=== PATIENT | female | born 1945 | race Caucasian/White ===

== ENCOUNTER 2019-05-04 08:55 | Observation (INO) | payer OTHER ==
[~2019-05-04] VITALS: Ht 160 cm; Wt 101.1 kg
--- NOTE | 2019-05-04 09:50 | EKG ---
[facility] [address] [place] [address] Test Date: 2019-05-04 Test Time: 09:49:33 Pat Name: CARLOZ DODSON Department: Room: Gender: F Manager Revenue: MARTIN : 1945 Requested By: MARLO CROTEZ Order Number: [id number] Reading MD: Measurements Intervals Rush Rate: 67 P: 18 NV: 122 QRS: -9 QRSD: 84 T: 4 QT: 380 QTc: 404 Interpretive Statements SINUS RHYTHM LEFTWARD AXIS OTHERWISE NORMAL ECG RI6.01 No previous ECG available for comparison
--- NOTE | 2019-05-04 09:52 | PHYS DOC ---
Past Medical History Past Medical History: Arthritis, Diabetes-Type II, Hypertension, Other Additional Past Medical Histor: TBI; gout Past Surgical History: Other Additional Past Surgical Histo: skull Smoking Status: Never Smoker Alcohol Use: None Adult General Chief Complaint Chief Complaint: MECHANICAL FALL HPI HPI 74-year-old female presenting the emergency department today after a fall while she was at home. She lives in assisted living facility and was walking without her walker when she reports falling. She has a history of a traumatic brain injury and has very little sensation in her left side of her body including left upper and left lower extremities. Her daughter is here with her. She denies hitting her head or losing consciousness. She didn't pass out she reports a mechanical fall. Since the fall she was having a hard time walking and complains primarily of the left knee and hip having some pain. She denies neck pain or back pain. She denies abdominal pain or chest pain. The pain in her knee and hip is sharp mild pain that is nonradiating without a leading factors. She denies any injury to her ankle. Review of systems is negative for chest pain abdominal pain back pain and neck pain or any changes in her neurologic condition. She is a baseline neuro status. All other review of systems negative. ED course: 74-year-old female presenting the emergency department today after a fall at home. X-rays of the left hip and knee obtained along with a head CT and some basic blood work with an EKG. EKG obtained and reviewed by myself shows sinus rhythm with a regular rate. ST segments congruent. Not suggestive of ACS. Otherwise her no other signs of trauma on physical examination. X-rays of the hip and knee are unremarkable. Patient is able to ambulate at baseline in the emergency department without any difficulty. Unfortunately the patient's glucose is significantly elevated at 528. We'll give the patient some IV fluids and admit the patient for treatment of her hyperglycemia. Allergies Allergies Allergies Coded Allergies Type Severity Reaction Last Updated Verified codeine Allergy Intermediate 05/04/19 Yes Physical Exam Physical Exam Constitutional: Well developed, well nourished, no acute distress, non-toxic appearance. [] HENT: Normocephalic, atraumatic, bilateral external ears normal, oropharynx moist, no oral exudates, nose normal. [] Eyes: PERRLA, EOMI, conjunctiva normal, no discharge. [] Neck: Normal range of motion, no tenderness, supple, no stridor. [] Cardiovascular:Heart rate regular rhythm, no murmur [] Lungs & Thorax: Bilateral breath sounds clear to auscultation [] Abdomen: Bowel sounds normal, soft, no tenderness, no masses, no pulsatile masses. [] Skin: Warm, dry, no erythema, no rash. [] Back: No tenderness, no CVA tenderness. [] Extremities: No tenderness, no cyanosis, no clubbing, ROM intact, no edema. [] Neurologic: Alert and oriented X 3, normal motor function, normal sensory function, no focal deficits noted. [] Psychologic: Affect normal, judgement normal, mood normal. [] Current Patient Data Vital Signs Vital Signs Date Time Temp Pulse Resp B/P (MAP) Pulse Ox O2 Delivery O2 Flow Rate FiO2 05/04/19 11:23 92 20 97 05/04/19 09:00 97.3 134/62 (86) Room Air 97.3 Lab Values Laboratory Tests Test 05/04/19 09:58 White Blood Count 6.1 x10^3/uL (4.0-11.0) Red Blood Count 4.55 x10^6/uL (3.50-5.40) Hemoglobin 13.4 g/dL (12.0-15.5) Hematocrit 39.6 % (36.0-47.0) Mean Corpuscular Volume 87 fL (79-100) Mean Corpuscular Hemoglobin 30 pg (25-35) Mean Corpuscular Hemoglobin Concent 34 g/dL (31-37) Red Cell Distribution Width 14.0 % (11.5-14.5) Platelet Count 133 x10^3/uL (140-400) L Neutrophils (%) (Auto) 64 % (31-73) Lymphocytes (%) (Auto) 25 % (24-48) Monocytes (%) (Auto) 7 % (0-9) Eosinophils (%) (Auto) 3 % (0-3) Basophils (%) (Auto) 1 % (0-3) Neutrophils # (Auto) 3.9 x10^3/uL (1.8-7.7) Lymphocytes # (Auto) 1.5 x10^3/uL (1.0-4.8) Monocytes # (Auto) 0.4 x10^3/uL (0.0-1.1) Eosinophils # (Auto) 0.2 x10^3/uL (0.0-0.7) Basophils # (Auto) 0.1 x10^3/uL (0.0-0.2) Sodium Level 136 mmol/L (136-145) Potassium Level 4.3 mmol/L (3.5-5.1) Chloride Level 98 mmol/L (98-107) Carbon Dioxide Level 28 mmol/L (21-32) Anion Gap 10 (6-14) Blood Urea Nitrogen 34 mg/dL (7-20) H Creatinine 2.0 mg/dL (0.6-1.0) H Estimated GFR (Cockcroft-Gault) 24.4 BUN/Creatinine Ratio 17 (6-20) Glucose Level 528 mg/dL (70-99) *H Calcium Level 9.8 mg/dL (8.5-10.1) Total Bilirubin 0.5 mg/dL (0.2-1.0) Aspartate Amino Transferase (AST) 12 U/L (15-37) L Alanine Aminotransferase (ALT) 20 U/L (14-59) Alkaline Phosphatase 129 U/L (46-116) H Total Protein 7.0 g/dL (6.4-8.2) Albumin 3.4 g/dL (3.4-5.0) Albumin/Globulin Ratio 0.9 (1.0-1.7) L Laboratory Tests 05/04/19 09:58 Laboratory Tests 05/04/19 09:58 EKG EKG [] Radiology/Procedures Radiology/Procedures [] Course & Med Decision Making Course & Med Decision Making Pertinent Labs and Imaging studies reviewed. (See chart for details) [] Dragon Disclaimer Dragon Disclaimer This electronic medical record was generated, in whole or in part, using a voice recognition dictation system. Departure Departure Impression: Primary Impression: Hyperglycemia Additional Impressions: Hip pain, left Fall Disposition: ADMITTED INPATIENT Condition: STABLE Referrals: MICAH COWAN DO (PCP) Problem Qualifiers MARLO CORTEZ MD May 04, 2019 09:52
[2019-05-04 10:02] LABS: BASO # 0.1 x10^3/uL (0.0-0.2); BASO % 1 % (0-3); EOS # 0.2 x10^3/uL (0.0-0.7); EOS % 3 % (0-3); HEMATOCRIT 39.6 % (36.0-47.0); HEMOGLOBIN 13.4 g/dL (12.0-15.5); LYMPH # 1.5 x10^3/uL (1.0-4.8); LYMPH % 25 % (24-48); MEAN CORPUSCULAR HEMOGLOBIN 30 pg (25-35); MEAN CORPUSCULAR HGB CONC 34 g/dL (31-37); MEAN CORPUSCULAR VOLUME 87 fL (79-100); MONO # 0.4 x10^3/uL (0.0-1.1); MONO % 7 % (0-9); NEUT # 3.9 x10^3/uL (1.8-7.7); NEUT % 64 % (31-73); PLATELET COUNT 133 x10^3/uL (140-400); RED BLOOD COUNT 4.55 x10^6/uL (3.50-5.40); WHITE BLOOD COUNT 6.1 x10^3/uL (4.0-11.0)
[2019-05-04 10:20] LABS: ALBUMIN 3.4 g/dL (3.4-5.0); ALBUMIN/GLOBULIN RATIO 0.9 (1.0-1.7); CALCIUM 9.8 mg/dL (8.5-10.1); GFR 24.4; POTASSIUM 4.3 mmol/L (3.5-5.1); TOTAL BILIRUBIN 0.5 mg/dL (0.2-1.0)
--- NOTE | 2019-05-04 10:29 | RAD ---
EXAM: Head CT without contrast. HISTORY: Fall. TECHNIQUE: Computed tomographic images of the head were obtained without contrast. *One or more of the following individualized dose reduction techniques were utilized for this examination: 1. Automated exposure control. 2. Adjustment of the mA and/or kV according to patient size. 3. Use of iterative reconstruction technique. COMPARISON: None. FINDINGS: There is no acute or subacute intracranial hemorrhage. There is a large region of cystic encephalomalacia possibly superimposed on a resection cavity involving the right middle cerebral artery distribution and middle cranial fossa. There are overlying craniotomy changes. There are suspected calcifications within the region of encephalomalacia. There are subtle areas of hypodensity within the cerebral white matter, likely due to chronic small vessel disease. There is mild age-appropriate cerebral volume loss. The orbits and paranasal sinuses are unremarkable. There is a small amount of fluid within the inferior left mastoid air cells. There is near complete opacification of the right mastoid air cells and there are right mastoidectomy changes. IMPRESSION: 1. No convincing acute intracranial finding. 2. Large region of encephalomalacia likely superimposed on a resection cavity involving the right middle cerebral artery distribution. There are overlying craniotomy changes. 3. Bilateral cerebral white matter changes, likely due to chronic small vessel disease. 4. Right mastoid air cell opacification and evidence of prior partial mastoid resection. Electronically signed by: Skylar Loya MD (05/04/2019 10:27 AM) [facility] [place]
--- NOTE | 2019-05-04 10:33 | RAD ---
Examination: HIP LEFT 2V WITH PELVIS History: Pain after fall injury Comparison/Correlation: None Findings: Frontal views of the pelvis were obtained. Frog-leg lateral view of the left hip and frontal view of the left hip were provided. Hip joint spaces are normal. No fracture or bone destruction. Soft tissues are unremarkable. Small sclerotic lesion involving the left greater trochanter is present with no suspicious features. Lower lumbar spine degenerative changes are present. Impression: No acute fracture or bone destruction. Consider further imaging if occult process is a persistent concern. Electronically signed by: Deepak Schaefer MD (05/04/2019 10:30 AM) [facility]
--- NOTE | 2019-05-04 10:35 | RAD ---
Examination: KNEE LEFT 3V History: Pain after fall injury Comparison/Correlation: None Findings: A total of 4 images were acquired. Frontal and lateral views of the left knee were obtained. Severe medial compartment narrowing is present. Spurring about the lateral and medial compartments is evident. No displaced fracture or bone destruction. No definite knee joint effusion although evaluation is limited on the lateral view provided due to artifact. Vascular calcification noted. Impression: Advanced degenerative changes. No acute process. Electronically signed by: Deepak Schaefer MD (05/04/2019 10:32 AM) [facility]
[2019-05-04] MEDS ORDERED: IV NORMAL SALINE 1000ML BAG 1,000 ML IV SCH (13:59)
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
[2019-05-04] MEDS ORDERED: ALBUTEROL SULFATE 2.5 MG/3 ML NEBU. NEB PRN (14:00)
[2019-05-04] MEDS ORDERED: guaiFENesin ORAL 200 MG/10 ML LIQUID. PO PRN (14:00)
[2019-05-04] MEDS ORDERED: ZOLPIDEM 5 MG TABLET. PO PRN (14:00)
[2019-05-04] MEDS ORDERED: DOCUSATE SODIUM 100 MG CAPSULE. PO PRN (14:00)
[2019-05-04] MEDS ORDERED: ACETAMINOPHEN 325 MG TABLET. PO PRN (14:00)
[2019-05-04] MEDS ORDERED: ONDANSETRON PF 4 MG/2 ML VIAL. IV PRN (14:00)
[2019-05-04] MEDS ORDERED: LORazepam 0.5 MG TABLET PO PRN (14:00)
[2019-05-04] MEDS ORDERED: DEXTROSE 50% 25 GM / 50ML DISP.SYRIN. IV PRN (15:45)
[2019-05-04] MEDS ORDERED: INSULIN LISPRO 300 UNITS/3 ML VIAL. SQ ONE ×2 (17:30→21:15)
[2019-05-04] MEDS: INSULIN LISPRO 300 UNITS/3 ML VIAL. SQ SCH (17:59)
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
[2019-05-04 19:00] VITALS: BP 158/77
[2019-05-04] MEDS: HEPARIN for SUB-Q USE 5,000 UNIT/ML VIAL. SQ SCH (20:28)
[2019-05-04] MEDS ORDERED: CINN500C2 PO (22:50)
[2019-05-04] MEDS ORDERED: SENN-82 PO (22:50)
[2019-05-04] MEDS ORDERED: LINA5TAB PO (22:50)
[2019-05-04] MEDS ORDERED: ASPI-630 PO (22:50)
[2019-05-04] MEDS ORDERED: DOCU-109 PO (22:50)
[2019-05-04] MEDS ORDERED: CALC-496 PO (22:50)
[2019-05-04] MEDS ORDERED: FERR325T14 PO (22:50)
[2019-05-04] MEDS ORDERED: FEBU80TA2 PO (22:50)
[2019-05-04] MEDS ORDERED: OMEP20CA16 PO (22:50)
[2019-05-04] MEDS ORDERED: DULO30CA2 PO (22:50)
[2019-05-04] MEDS ORDERED: GABA300C18 PO (22:50)
[2019-05-04] MEDS ORDERED: FURO40TA4 PO (22:50)
[2019-05-04] MEDS ORDERED: GLIM4TAB8 PO (22:50)
[2019-05-04] MEDS ORDERED: POTA20TA40 PO (22:53)
[2019-05-04 23:00] VITALS: BP 122/71
[2019-05-05 03:41] VITALS: BP 118/68
[2019-05-05 07:00] VITALS: BP 133/59
[2019-05-05] MEDS ORDERED: PANTOPRAZOLE 40 MG TABLET.DR. PO SCH (07:30)
[2019-05-05] MEDS ORDERED: CALCIUM CARB/VIT D3 500/200 TABLET. PO SCH (08:00)
[2019-05-05] MEDS ORDERED: FERROUS SULFATE 325 MG TABLET. PO SCH (08:00)
[2019-05-05] MEDS ORDERED: ASPIRIN CHEWABLE 81 MG TABLET. PO SCH (08:00)
[2019-05-05] MEDS ORDERED: FEBUXOSTAT 40 MG TABLET PO SCH (09:00)
[2019-05-05] MEDS ORDERED: POTASSIUM BICARB 20 MEQ EFFERVESCENT TABLET. PO SCH (09:00)
[2019-05-05] MEDS ORDERED: NON FORMULARY ITEM (Cinnamon Bark (Cinnamon) 1,000 MG) PO SCH (09:00)
[2019-05-05] MEDS ORDERED: DOCUSATE SODIUM 100 MG CAPSULE. PO SCH (09:00)
[2019-05-05] MEDS ORDERED: LINAGLIPTIN 5 MG TABLET PO SCH (09:00)
[2019-05-05] MEDS: GLIMEPIRIDE 2 MG TABLET. PO SCH ×2 (09:27→15:50)
[2019-05-05] MEDS: FUROSEMIDE 40 MG TABLET. PO SCH ×2 (09:27→15:50)
[2019-05-05] MEDS: GABAPENTIN 300 MG CAPSULE. PO SCH ×2 (09:28→15:50)
[2019-05-05] MEDS: HEPARIN for SUB-Q USE 5,000 UNIT/ML VIAL. SQ SCH (09:39)
[2019-05-05] MEDS: INSULIN LISPRO 300 UNITS/3 ML VIAL. SQ SCH ×2 (10:00→11:39)
[2019-05-05 11:00] VITALS: BP 139/73
[2019-05-05] MEDS ORDERED: INSULIN LISPRO 300 UNITS/3 ML VIAL. SQ ONE (11:30)
[2019-05-05] MEDS ORDERED: INSULIN LISPRO 300 UNITS/3 ML VIAL. SQ SCH (11:30)
--- NOTE | 2019-05-05 13:38 | PDOC ---
PROGRESS NOTES Chief Complaint Chief Complaint Mechanical fall Essential hypertension Hyperglycemia Diabetes mellitus type 2 insulin requiring Obesity with a BMI of 39 History of traumatic brain injury Plan increase insulin dosage for better glycemia control continue home meds Further recommendations based on the clinical course DVT prophylaxis with Lovenox History of Present Illness History of Present Illness Patient having a bowel movement at the time of my visit, no new complaitns voiced by the patient. she did not have acute events reported overnight, we need to increase her insulin for better control Vitals Vitals Vital Signs Date Time Temp Pulse Resp B/P (MAP) Pulse Ox O2 Delivery O2 Flow Rate FiO2 05/05/19 11:00 97.9 88 20 139/73 (95) 99 Room Air 97.9 Physical Exam Physical Exam Gen.: well-developed well-nourished in no apparent distress Head: Normal shape atraumatic Eyes: Pupils equal reactive to light and accommodation, normal conjunctivae and lids Ears: Normal shape Nose: Normal shape no trauma Mouth: No exudates of the back of throat no thrush no lesions Neck: Supple no JVD no carotid bruit or lymphadenopathy no thyromegaly Chest: Lungs clear to auscultation with good inspiratory effort no crackles rales or rhonchi Cardiovascular: S1-S2 regular rhythm no murmurs gallops or rubs Abdomen: Bowel sounds present soft nontender no hepatosplenomegaly appreciated sign Extremities: No clubbing no cyanosis no edema peripheral pulses palpated bilaterally Neurological: Alert awake oriented in person time place and situation, cranial nerves II through XII intact, no motor or sensory deficits appreciated Psych: Appropriate mood, cooperative Labs LABS Laboratory Tests Test 05/04/19 17:06 05/04/19 19:59 05/05/19 02:05 05/05/19 03:50 Glucose (Fingerstick) 469 mg/dL (70-99) 285 mg/dL (70-99) 70 mg/dL (70-99) 133 mg/dL (70-99) Test 05/05/19 07:08 05/05/19 10:27 Glucose (Fingerstick) 255 mg/dL (70-99) 417 mg/dL (70-99) Assessment and Plan Assessmemt and Plan Problems Medical Problems: (1) Fall Status: Acute (2) Hip pain, left Status: Acute (3) Hyperglycemia Status: Acute Comment Review of Relevant I have reviewed the following items rigoberto (where applicable) has been applied. Labs Laboratory Tests Test 05/04/19 09:58 05/04/19 13:13 05/04/19 17:06 05/04/19 19:59 White Blood Count 6.1 x10^3/uL (4.0-11.0) Red Blood Count 4.55 x10^6/uL (3.50-5.40) Hemoglobin 13.4 g/dL (12.0-15.5) Hematocrit 39.6 % (36.0-47.0) Mean Corpuscular Volume 87 fL (79-100) Mean Corpuscular Hemoglobin 30 pg (25-35) Mean Corpuscular Hemoglobin Concent 34 g/dL (31-37) Red Cell Distribution Width 14.0 % (11.5-14.5) Platelet Count 133 x10^3/uL (140-400) Neutrophils (%) (Auto) 64 % (31-73) Lymphocytes (%) (Auto) 25 % (24-48) Monocytes (%) (Auto) 7 % (0-9) Eosinophils (%) (Auto) 3 % (0-3) Basophils (%) (Auto) 1 % (0-3) Neutrophils # (Auto) 3.9 x10^3/uL (1.8-7.7) Lymphocytes # (Auto) 1.5 x10^3/uL (1.0-4.8) Monocytes # (Auto) 0.4 x10^3/uL (0.0-1.1) Eosinophils # (Auto) 0.2 x10^3/uL (0.0-0.7) Basophils # (Auto) 0.1 x10^3/uL (0.0-0.2) Sodium Level 136 mmol/L (136-145) Potassium Level 4.3 mmol/L (3.5-5.1) Chloride Level 98 mmol/L (98-107) Carbon Dioxide Level 28 mmol/L (21-32) Anion Gap 10 (6-14) Blood Urea Nitrogen 34 mg/dL (7-20) Creatinine 2.0 mg/dL (0.6-1.0) Estimated GFR (Cockcroft-Gault) 24.4 BUN/Creatinine Ratio 17 (6-20) Glucose Level 528 mg/dL (70-99) Calcium Level 9.8 mg/dL (8.5-10.1) Total Bilirubin 0.5 mg/dL (0.2-1.0) Aspartate Amino Transf (AST/SGOT) 12 U/L (15-37) Alanine Aminotransferase (ALT/SGPT) 20 U/L (14-59) Alkaline Phosphatase 129 U/L (46-116) Total Protein 7.0 g/dL (6.4-8.2) Albumin 3.4 g/dL (3.4-5.0) Albumin/Globulin Ratio 0.9 (1.0-1.7) Glucose (Fingerstick) 469 mg/dL (70-99) 469 mg/dL (70-99) 285 mg/dL (70-99) Test 05/05/19 02:05 05/05/19 03:50 05/05/19 07:08 05/05/19 10:27 Glucose (Fingerstick) 70 mg/dL (70-99) 133 mg/dL (70-99) 255 mg/dL (70-99) 417 mg/dL (70-99) Laboratory Tests Test 05/04/19 17:06 05/04/19 19:59 05/05/19 02:05 05/05/19 03:50 Glucose (Fingerstick) 469 mg/dL (70-99) 285 mg/dL (70-99) 70 mg/dL (70-99) 133 mg/dL (70-99) Test 05/05/19 07:08 05/05/19 10:27 Glucose (Fingerstick) 255 mg/dL (70-99) 417 mg/dL (70-99) Medications Current Medications Sodium Chloride 1,000 ml @ 100 mls/hr Q10H IV Last administered on 05/04/19at 17:56; Start 05/04/19 at 13:59 Ondansetron HCl (Zofran) 4 mg PRN Q4HRS PRN IV NAUSEA/VOMITING; Start 05/04/19 at 14:00 Zolpidem Tartrate (Ambien) 5 mg PRN QHS PRN PO INSOMNIA; Start 05/04/19 at 14:00 Acetaminophen (Tylenol) 650 mg PRN Q4HRS PRN PO TEMP OVER 100.4F OR MILD PAIN Last administered on 05/04/19at 20:20; Start 05/04/19 at 14:00 Docusate Sodium (Colace) 100 mg PRN BID PRN PO CONSTIPATION; Start 05/04/19 at 14:00 Albuterol Sulfate (Ventolin Neb Soln) 2.5 mg PRN Q4HRS PRN NEB SHORTNESS OF BREATH; Start 05/04/19 at 14:00 Guaifenesin (Robitussin) 200 mg PRN Q4HRS PRN PO COUGH; Start 05/04/19 at 14:00 Lorazepam (Ativan) 0.5 mg PRN Q4HRS PRN PO ANXIETY / AGITATION Last administered on 05/04/19at 20:20; Start 05/04/19 at 14:00 Heparin Sodium (Porcine) (Heparin Sodium) 5,000 unit Q12H SQ Last administered on 05/05/19at 09:39; Start 05/04/19 at 21:00 Insulin Human Lispro (HumaLOG) 0-7 UNITS TIDWMEALS SQ Last administered on 05/05/19at 10:00; Start 05/04/19 at 17:00 Dextrose (Dextrose 50%-Water Syringe) 12.5 gm PRN Q15MIN PRN IV SEE COMMENTS; Start 05/04/19 at 15:45 Insulin Human Lispro (HumaLOG) 10 units 1X ONCE SQ Last administered on 05/04/19at 18:00; Start 05/04/19 at 17:30; Stop 05/04/19 at 17:31; Status DC Insulin Human Lispro (HumaLOG) 4 units 1X ONCE SQ Last administered on 05/04/19at 23:00; Start 05/04/19 at 21:15; Stop 05/04/19 at 21:16; Status DC Aspirin (Children'S Aspirin) 81 mg DAILYWBKFT PO Last administered on 05/05/19at 09:27; Start 05/05/19 at 08:00 Docusate Sodium (Colace) 200 mg DAILY PO Last administered on 05/05/19at 09:26; Start 05/05/19 at 09:00 Duloxetine HCl (Cymbalta) 30 mg HS PO ; Start 05/05/19 at 21:00 Ferrous Sulfate (Feosol) 325 mg BIDWMEALS PO Last administered on 05/05/19at 09:27; Start 05/05/19 at 08:00 Furosemide (Lasix) 40 mg BID92 PO Last administered on 05/05/19 09:27; Start 05/05/19 at 09:00 Gabapentin (Neurontin) 300 mg TID PO Last administered on 05/05/19 09:28; Start 05/05/19 at 09:00 Linagliptin (Tradjenta) 5 mg DAILY PO Last administered on 05/05/19 09:27; Start 05/05/19 at 09:00 Potassium Bicarbonate (Potassium Effervescent Tablet) 20 meq DAILY PO Last administered on 05/05/19 09:26; Start 05/05/19 at 09:00 Senna/Docusate Sodium (Senna Plus) 2 tab HS PO ; Start 05/05/19 at 21:00 Calcium/Vitamin D (Oscal D 500mg/ 200uts) 1 tab DAILYWBKFT PO Last administered on 05/05/19 09:27; Start 05/05/19 at 08:00 Non-Formulary Medication (Cinnamon Bark (Cinnamon)) 1,000 mg DAILY PO ; Start 05/05/19 at 09:00; Status UNV Febuxostat (Uloric) 80 mg DAILY PO Last administered on 05/05/19 09:46; Start 05/05/19 at 09:00 Glimepiride (Amaryl) 4 mg BIDAC PO Last administered on 05/05/19 09:27; Start 05/05/19 at 07:30 Pantoprazole Sodium (Protonix) 40 mg DAILYAC PO Last administered on 05/05/19 09:27; Start 05/05/19 at 07:30 Insulin Human Lispro (HumaLOG) 12 units 1X SQ ; Start 05/05/19 at 11:30; Stop 05/05/19 at 11:26; Status DC Insulin Human Lispro (HumaLOG) 12 units ONCE ONCE SQ Last administered on 05/05/19 11:39; Start 05/05/19 at 11:30; Stop 05/05/19 at 11:31; Status DC Active Scripts Active Reported Effer-K 20 Meq Tablet Eff (Potassium Bicarbonate/Cit Ac) 20 Meq Tablet.eff 1 Tab PO DAILY 30 Days Uloric (Febuxostat) 80 Mg Tablet 1 Tab PO DAILY 30 Days Tradjenta (Linagliptin) 5 Mg Tablet 5 Mg PO DAILY Senna S Tablet (Sennosides/Docusate Sodium) 1 Each Tablet 2 Each PO HS Omeprazole 20 Mg Capsule.dr 1 Cap PO DAILY Glimepiride 4 Mg Tablet 1 Tab PO BID Gabapentin (Gabapentin) 300 Mg Capsule 300 Mg PO TID Furosemide 40 Mg Tablet 40 Mg PO BID Ferrous Sulfate 325 Mg Tablet 1 Tab PO BID Cymbalta (Duloxetine Hcl) 30 Mg Capsule.dr 1 Cap PO HS Colace (Docusate Sodium) 100 Mg Capsule 2 Cap PO DAILY 30 Days Cinnamon (Cinnamon Bark) 500 Mg Capsule 1,000 Mg PO DAILY Calcium 600 + Vit D3 Tablet (Calcium Carbonate/Vitamin D3) 1 Each Tablet 1 Tab PO DAILY 30 Days Aspirin 81 Mg Tab.chew 1 Tab PO DAILY Vitals/I & O Vital Sign - Last 24 Hours 05/04/19 05/04/19 05/04/19 05/05/19 19:00 20:00 23:00 03:41 Temp 97.3 97.6 97.8 97.3 97.6 97.8 Pulse 87 77 74 Resp 18 18 16 B/P (MAP) 158/77 (104) 122/71 (88) 118/68 (85) Pulse Ox 98 100 97 O2 Delivery Room Air Room Air Room Air Room Air 05/05/19 05/05/19 07:00 11:00 Temp 97.8 97.9 97.8 97.9 Pulse 82 88 Resp 21 20 B/P (MAP) 133/59 (83) 139/73 (95) Pulse Ox 98 99 O2 Delivery Room Air Room Air Intake and Output 05/04/19 05/04/19 05/05/19 14:59 22:59 06:59 Intake Total 0 ml 200 ml Balance 0 ml 200 ml LANCE TORRES MD May 05, 2019 13:38
[2019-05-05] MEDS ORDERED: INSULIN GLARGINE SYRINGE. SQ SCH (14:00)
[2019-05-05 14:56] VITALS: BP 146/69
--- NOTE | 2019-05-05 15:59 | NUR ---
SS following for discharge planning. SS reviewed pt chart. Pt is from home and is currently on room air. SS will continue to follow for discharge planning.
--- NOTE | 2019-05-05 17:33 | PDOC3 ---
Discharge Summary Visit Information Date of Admission: May 04, 2019 Date of Discharge: May 05, 2019 Admitting Diagnosis Comment: Mechanical fall Essential hypertension Hyperglycemia Diabetes mellitus type 2 insulin requiring Obesity with a BMI of 39 History of traumatic brain injury Final Diagnosis Problems Medical Problems: (1) Fall Status: Acute (2) Hip pain, left Status: Acute (3) Hyperglycemia resolved Status: Acute Brief Hospital Course Allergies Allergies Coded Allergies Type Severity Reaction Last Updated Verified codeine Allergy Intermediate 05/04/19 Yes Vital Signs Vital Signs Date Time Temp Pulse Resp B/P (MAP) Pulse Ox O2 Delivery O2 Flow Rate FiO2 05/05/19 14:56 98.0 77 19 146/69 (94) 99 Room Air 98.0 Lab Results Laboratory Tests Test 05/04/19 09:58 05/04/19 13:13 05/04/19 17:06 05/04/19 19:59 White Blood Count 6.1 x10^3/uL (4.0-11.0) Red Blood Count 4.55 x10^6/uL (3.50-5.40) Hemoglobin 13.4 g/dL (12.0-15.5) Hematocrit 39.6 % (36.0-47.0) Mean Corpuscular Volume 87 fL (79-100) Mean Corpuscular Hemoglobin 30 pg (25-35) Mean Corpuscular Hemoglobin Concent 34 g/dL (31-37) Red Cell Distribution Width 14.0 % (11.5-14.5) Platelet Count 133 x10^3/uL (140-400) Neutrophils (%) (Auto) 64 % (31-73) Lymphocytes (%) (Auto) 25 % (24-48) Monocytes (%) (Auto) 7 % (0-9) Eosinophils (%) (Auto) 3 % (0-3) Basophils (%) (Auto) 1 % (0-3) Neutrophils # (Auto) 3.9 x10^3/uL (1.8-7.7) Lymphocytes # (Auto) 1.5 x10^3/uL (1.0-4.8) Monocytes # (Auto) 0.4 x10^3/uL (0.0-1.1) Eosinophils # (Auto) 0.2 x10^3/uL (0.0-0.7) Basophils # (Auto) 0.1 x10^3/uL (0.0-0.2) Sodium Level 136 mmol/L (136-145) Potassium Level 4.3 mmol/L (3.5-5.1) Chloride Level 98 mmol/L (98-107) Carbon Dioxide Level 28 mmol/L (21-32) Anion Gap 10 (6-14) Blood Urea Nitrogen 34 mg/dL (7-20) Creatinine 2.0 mg/dL (0.6-1.0) Estimated GFR (Cockcroft-Gault) 24.4 BUN/Creatinine Ratio 17 (6-20) Glucose Level 528 mg/dL (70-99) Calcium Level 9.8 mg/dL (8.5-10.1) Total Bilirubin 0.5 mg/dL (0.2-1.0) Aspartate Amino Transf (AST/SGOT) 12 U/L (15-37) Alanine Aminotransferase (ALT/SGPT) 20 U/L (14-59) Alkaline Phosphatase 129 U/L (46-116) Total Protein 7.0 g/dL (6.4-8.2) Albumin 3.4 g/dL (3.4-5.0) Albumin/Globulin Ratio 0.9 (1.0-1.7) Glucose (Fingerstick) 469 mg/dL (70-99) 469 mg/dL (70-99) 285 mg/dL (70-99) Test 05/05/19 02:05 05/05/19 03:50 05/05/19 07:08 05/05/19 10:27 Glucose (Fingerstick) 70 mg/dL (70-99) 133 mg/dL (70-99) 255 mg/dL (70-99) 417 mg/dL (70-99) Test 05/05/19 15:38 05/05/19 17:11 Glucose (Fingerstick) 200 mg/dL (70-99) 178 mg/dL (70-99) Laboratory Tests Test 05/04/19 19:59 05/05/19 02:05 05/05/19 03:50 05/05/19 07:08 Glucose (Fingerstick) 285 mg/dL (70-99) 70 mg/dL (70-99) 133 mg/dL (70-99) 255 mg/dL (70-99) Test 05/05/19 10:27 2/20/20 15:38 05/05/19 17:11 Glucose (Fingerstick) 417 mg/dL (70-99) 200 mg/dL (70-99) 178 mg/dL (70-99) Brief Hospital Course Patient is a 74-year-old female with past medical history of diabetes mellitus type 2 insulin requiring essential hypertension and traumatic brain injury who was in her usual state of health her living facility when [facility]. Details are not very accurate since the patient is not a very good historian. Most of the information is from review of the chart and report from emergency department physician. At the time my evaluation the patient is in no acute distress she is not complaining of any discomfort she does have complains of dry mouth. The patient denies any chest pain palpitations no shortness of breath or loss of consciousness was reported. No seizure-like activity was reported either. No postictal period, she did not have lightheadedness prior to the episode and it was apparently a simple mechanical fall. Unfortunately the patient has not suffered any fractures and her workup in the emergency department yielded pretty Much normal laboratory data except for her hyperglycemia greater than 500. We were asked to admit the patient for glycemia control. She received rapid acting correcting insulin and also long acting insulin, she had fluids as well with normal saline, she did not percent any acute events during her hospital stay and once Lantus was instituted the patient seemed to respond well to it and her last glycemia prior to dismissal was in the 150 range. No changes were made to her medications and she was in good spirits to be dismissed home family at bedside as well were given instructions by nursing staff Discharge Information Condition at Discharge: Improved Follow Up: Weeks Disposition/Orders: D/C to Home Scheduled Aspirin (Aspirin) 81 Mg Tab.chew, 1 TAB PO DAILY for blood thinner, #30 Ref 3 (Reported) Entered as Reported by: ANDREINA GRIFFIN on 05/04/192249 Last Action: Continued on 05/04/192351 by ANDREINA GRIFFIN Calcium Carbonate/Vitamin D3 (Calcium 600 + Vit D3 Tablet) 1 Each Tablet, 1 TAB PO DAILY for supplement for 30 Days, #30 Ref 0 (Reported) Entered as Reported by: ANDREINA GRIFFIN on 05/04/192249 Last Action: Converted on 05/04/192351 by ANDREINA GRIFFIN Cinnamon Bark (Cinnamon) 500 Mg Capsule, 1,000 MG PO DAILY for supplement, (Reported) Entered as Reported by: ANDREINA GRIFFIN on 05/04/192249 Last Action: Converted on 05/04/192351 by ANDREINA GRIFFIN Docusate Sodium (Colace) 100 Mg Capsule, 2 CAP PO DAILY for constipation for 30 Days, #60 Ref 0 (Reported) Entered as Reported by: ANDREINA GRIFFIN on 05/04/192249 Last Action: Continued on 05/04/192351 by ANDREINA GRIFFIN Duloxetine Hcl (Cymbalta) 30 Mg Capsule., 1 CAP PO HS for depression, #30 Ref 5 (Reported) Entered as Reported by: ANDREINA GRIFFIN on 05/04/192249 Last Action: Continued on 05/04/192351 by ANDREINA GRIFFIN Febuxostat (Uloric) 80 Mg Tablet, 1 TAB PO DAILY for uric acid [employer] for 30 Days, #30 Ref 0 (Reported) Entered as Reported by: ANDREINA GRIFFIN on 05/04/192249 Last Action: Converted on 05/04/192351 by ANDREINA GRIFFIN Ferrous Sulfate (Ferrous Sulfate) 325 Mg Tablet, 1 TAB PO BID for supplement, #60 Ref 3 (Reported) Entered as Reported by: ANDREINA GRIFFIN on 05/04/192249 Last Action: Continued on 05/04/192351 by ANDREINA GRIFFIN Furosemide (Furosemide) 40 Mg Tablet, 40 MG PO BID for swelling, (Reported) Entered as Reported by: ANDREINA GRIFFIN on 05/04/192249 Last Action: Continued on 05/04/192351 by ANDREINA GRIFFIN Gabapentin (Gabapentin ) 300 Mg Capsule, 300 MG PO TID for NEUROGENIC PAIN, (Reported) Entered as Reported by: ANDREINA GRIFFIN on 05/04/192249 Last Action: Continued on 05/04/192351 by ANDREINA GRIFFIN Glimepiride (Glimepiride) 4 Mg Tablet, 1 TAB PO BID for dm, #180 Ref 1 (Reported) Entered as Reported by: ANDREINA GRIFFIN on 05/04/192249 Last Action: Converted on 05/04/192351 by ANDREINA GRIFFIN Linagliptin (Tradjenta) 5 Mg Tablet, 5 MG PO DAILY for TYPE 2 DIABETES, (Reported) Entered as Reported by: ANDREINA GRIFFIN on 05/04/192249 Last Action: Continued on 05/04/192351 by ANDREINA GRIFFIN Omeprazole (Omeprazole) 20 Mg Capsule.dr, 1 CAP PO DAILY for acid, #30 Ref 5 (Reported) Entered as Reported by: ANDREINA GRIFFIN on 05/04/192249 Last Action: Converted on 05/04/192351 by ANDREINA GRIFFIN Potassium Bicarbonate/Cit Ac (Effer-K 20 Meq Tablet Eff) 20 Meq Tablet.eff, 1 TAB PO DAILY for supplement for 30 Days, #30 Ref 0 (Reported) Entered as Reported by: ANDREINA GRIFFIN on 05/04/192252 Last Action: Continued on 05/04/192351 by ANDREINA GRIFFIN Sennosides/Docusate Sodium (Senna S Tablet) 1 Each Tablet, 2 EACH PO HS for constipation, (Reported) Entered as Reported by: ANDREINA GRIFFIN on 05/04/192249 Last Action: Continued on 05/04/192351 by LANCE MADISON MD May 05, 2019 17:33
--- NOTE | 2019-05-05 19:34 | NUR ---
Discharge Note: CARLOZ DODSON [address] Discharge instructions and discharge home medications reviewed with Patient and son and a copy given. All questions have been answered and understanding verbalized. The following instructions and handouts were given: patient visit report, medication information, education. Discontinued lines and drains: peripheral IV, tip intact. Patient discharged to home with self care via transportation service. Patient left unit awake, in stable condition with all personal belongings. Report called to AUDELIA Hanna at [facility].
[2019-05-05] MEDS ORDERED: DULoxetine HCL 30 MG CAPSULE.DR PO SCH (21:00)
[2019-05-05] MEDS ORDERED: SENNOSIDES/DOCUSATE 8.6/50MG TABLET. PO SCH (21:00)
== END 2019-05-05 18:35 | disposition home or self-care (01) ==
LOC: ER 08:55 → 5 SOUTH 11:27
PROVIDERS: ADMIT Internal Medicine; ATTEND Internal Medicine
DX: M25.552 Pain in left hip (principal); E11.65 Type 2 diabetes mellitus with hyperglycemia; E66.9 Obesity, unspecified; M19.90 Unspecified osteoarthritis, unspecified site; M10.9 Gout, unspecified; E11.9 Type 2 diabetes mellitus without complications; Z68.39 Body mass index [BMI] 39.0-39.9, adult; I10 Essential (primary) hypertension; Z87.820 Personal history of traumatic brain injury; Z98.890 Other specified postprocedural states; W19.XXXA Unspecified fall, initial encounter; Y93.01 Activity, walking, marching and hiking; Y92.099 Unspecified place in other non-institutional residence as the place of occurrence of the external cause; Y99.8 Other external cause status
CPT/HCPCS: 36415; 70450; 73502; 73562; 80053; 82962; 85025; 93005; 96372; G0378; G0379; J1644; J1815; J7030; 99285-25

== ENCOUNTER 2020-12-26 15:30 | Emergency (ER) | payer OTHER ==
[~2020-12-26] VITALS: Ht 167.6 cm; Wt 127.0 kg
[~2020-12-26 15:30] MED LIST: ASPI-630 PO; CALC-496 PO; CINN500C2 PO; DOCU-109 PO; DULO30CA2 PO; FEBU80TA2 PO; FERR325T14 PO; FURO40TA4 PO; GABA300C18 PO; GLIM4TAB8 PO; LINA5TAB PO; OMEP20CA16 PO; POTA20TA40 PO; SENN-82 PO
--- NOTE | 2020-12-26 16:16 | RAD ---
History: Trauma with elbow pain. AP, oblique and lateral views of the left elbow were obtained. Comparison: none. There is no fracture, dislocation, or joint effusion seen. Moderate degenerative changes and subchond ral cyst formation. Electronically signed by: Rainer Herzog MD (12/26/2020 4:13 PM) [facility]
--- NOTE | 2020-12-26 16:22 | PHYS DOC ---
Past Medical History Past Medical History: Arthritis, Diabetes-Type II, Hypertension, Other Additional Past Medical Histor: gout, TBI, Arthritis. Past Surgical History: No Surgical History Additional Past Surgical Histo: skull Smoking Status: Never Smoker Alcohol Use: None General Adult EDM: Chief Complaint: MECHANICAL FALL HPI: HPI: Patient is a 75 year old female who was brought here from prison for eval uation after she fell out of her bed. Patient stated that she tried to get out of her bed, and the bed move so she lost her balance and fell down on her left side, hit her left elbow her left hip on the ground. Patient complaining of left hip pain left elbow pain. Patient said she had chronic low back pain, and therefore made her back pain worse. Patient denies any bowel or bladder incontinence. Patient denies any head or neck injury. Patient is not on any blood thinner. Patient denies any chest pain, no abdominal pain, no nausea vomiting. Review of Systems: Review of Systems: Constitutional: Denies fever or chills. [] Eyes: Denies change in visual acuity. [] HENT: Denies nasal congestion or sore throat. [] Respiratory: Denies cough or shortness of breath. [] Cardiovascular: Denies chest pain or edema. [] GI: Denies abdominal pain, nausea, vomiting, bloody stools or diarrhea. [] : Denies dysuria. [] Musculoskeletal: Positive for low back pain, left elbow pain, left hip pain. Integument: Denies rash. [] Neurologic: Denies headache, focal weakness or sensory changes. [] Endocrine: Denies polyuria or polydipsia. [] Lymphatic: Denies swollen glands. [] Psychiatric: Denies depression or anxiety. [] Heart Score: C/O Chest Pain: N/A Risk Factors: Risk Factors: DM, Current or recent (<one month) smoker, HTN, HLP, family history of CAD, obesity. Risk Scores: Score 0 - 3: 2.5% MACE over next 6 weeks - Discharge Home Score 4 - 6: 20.3% MACE over next 6 weeks - Admit for Clinical Observation Score 7 - 10: 72.7% MACE over next 6 weeks - Early Invasive Strategies Allergies: Allergies: Allergies Coded Allergies Type Severity Reaction Last Updated Verified codeine Allergy Intermediate 12/26/20 Yes Physical Exam: PE: Constitutional: Well developed, well nourished, no acute distress, non-toxic appearance. [] HENT: Normocephalic, atraumatic, bilateral external ears normal, oropharynx moist, no oral exudates, nose normal. [] Eyes: PERRLA, EOMI, conjunctiva normal, no discharge. [] Neck: Normal range of motion, no tenderness, supple, no stridor. [] Cardiovascular:Heart rate regular rhythm, no murmur [] Lungs & Thorax: Bilateral breath sounds clear to auscultation [] Abdomen: Bowel sounds normal, soft, no tenderness, no masses, no pulsatile masses. [] Skin: Warm, dry, no erythema, no rash. [] Back: There is midline vertebral tenderness to palpation at L5/S1 AREA, NO BONY STEP OFF, LEFT ELBOW IS TENDER TO PALPATION, THERE IS FULL RANGE OF MOTION. Left hip is tender to palpation, no deformity noted, pelvis is stable. Extremities: No tenderness, no cyanosis, no clubbing, ROM intact, no edema. [] Neurologic: Alert and oriented X 3, normal motor function, normal sensory fun ction, no focal deficits noted. [] Psychologic: Affect normal, judgement normal, mood normal. [] Current Patient Data: Vital Signs: Vital Signs Date Time Temp Pulse Resp B/P (MAP) Pulse Ox O2 Delivery O2 Flow Rate FiO2 12/26/20 15:30 97.9 95 16 127/89 (102) 98 Room Air 97.9 EKG: EKG: [] Radiology/Procedures: Radiology/Procedures: [][facility] [address] [place] [address] IMAGING REPORT Signed PATIENT: CARLOZ DODSON ACCOUNT: [id number] : 1945 LOCATION: ER AGE: 75 SEX: F EXAM STATUS: REG ER ORD. PHYSICIAN: POLLO PARRISH DO REASON: Trauma, left elbow pain PROCEDURE: ELBOW LEFT 3V History: Trauma with elbow pain. AP, oblique and lateral views of the left elbow were obtained. Comparison: none. There is no fracture, dislocation, or joint effusion seen. Moderate degenerative changes and subchondral cyst formation. Electronically signed by: Rainer Herzog MD (12/26/2020 4:13 PM) [facility] DICTATED and SIGNED BY: RAINER HERZOG MD DATE: 12/26/20 [id number] [facility] [address] [place] [address] IMAGING REPORT Signed PATIENT: CARLOZ DODSON ACCOUNT: [id number] : 1945 LOCATION: ER AGE: 75 SEX: F EXAM STATUS: REG ER ORD. PHYSICIAN: POLLO PARRISH DO REASON: Trauma, lower back pain PROCEDURE: LUMBAR SPINE 2-3V XR BILATERAL HIP (WITH OR WITHOUT PELVIS) LEFT 2 VIEWS, XR LUMBAR SPINE 2-3V Clinical indications: Reason: fell, left hip pain /lower back pain Left hip: No acute fracture or dislocation or osteolytic process is evident. Lumbar spine: Mild levoscoliosis is seen. Transverse processes are intact. No compression fracture or discitis or lytic process is evident. Grade 1 anterolisthesis of L5-S1 is seen. Degenerative facet arthropathy is seen involving the lower lumbar spine and lumbosacral junction. There is moderate degenerative disc space narrowing and endplate spurring throughout the lumbar sacral junction. IMPRESSION: No acute osseous abnormality is evident. Electronically signed by: Shyla Crockett MD (12/26/2020 4:17 PM) [id number] DICTATED and SIGNED BY: SHYLA CROCKETT MD DATE: 12/26/20 [id number] [facility] [address] [facility] [place] [address] IMAGING REPORT Signed PATIENT: CARLOZ DODSON ACCOUNT: [id number] : 1945 LOCATION: ER AGE: 75 SEX: F EXAM STATUS: REG ER ORD. PHYSICIAN: POLLO PARRISH DO REASON: fell, left hip pain PROCEDURE: HIP LEFT 2V WITH PELVIS XR BILATERAL HIP (WITH OR WITHOUT PELVIS) LEFT 2 VIEWS, XR LUMBAR SPINE 2-3V Clinical indications: Reason: fell, left hip pain /lower back pain Left hip: No acute fracture or dislocation or osteolytic process is evident. Lumbar spine: Mild levoscoliosis is seen. Transverse processes are intact. No compression fracture or discitis or lytic process is evident. Grade 1 anterolisthesis of L5-S1 is seen. Degenerative facet arthropathy is seen involving the lower lumbar spine and lumbosacral junction. There is moderate degenerative disc space narrowing and endplate spurring throughout the lumbar sacral junction. IMPRESSION: No acute osseous abnormality is evident. Electronically signed by: Shyla Crockett MD (12/26/2020 4:17 PM) [id number] DICTATED and SIGNED BY: SHYLA CROCKETT MD DATE: 12/26/20 [id number] [facility] [address] [place] [address] IMAGING REPORT Signed PATIENT: CARLOZ DODSON ACCOUNT: [id number] : 1945 LOCATION: ER AGE: 75 SEX: F EXAM STATUS: REG ER ORD. PHYSICIAN: POLLO PARRISH DO REASON: fell, left side hip and pelvic pain PROCEDURE: CT PELVIS WO CONTRAST CT study of the pelvis without contrast Clinical indications: Fall. Left-sided hip pain and pelvic pain. TECHNIQUE: Noncontrast helical CT scanning of the pelvis was performed. Multiplanar 2-D reconstructions were generated. PQRS compliance Statement One or more of the following individualized dose reduction techniques were utilized for this study: 1. Automated exposure control 2. Adjustment of the mA and/or kV according to patient size 3. Use of iterative reconstruction technique FINDINGS: There is grade 1 anterolisthesis of L5-S1 secondary to bilateral facet arthropathy. There is a mild wedge compression deformity of the left side of L5 vertebral body. This is of indeterminate age. There is more prominent dege nerative endplate spurring and disc space narrowing on the left side at L4-5 and L5-S1. No other acute fracture is apparent. The hip joints are symmetric without significant arthritic change. No diastases of the symphysis pubis or either SI joint is seen. No enlarged pelvic lymphadenopathy is evident. No soft tissue mass is seen. No uterine mass is evident. No dominant ovarian cyst or mass is seen. Sigmoid diverticulosis is seen without diverticulitis. IMPRESSION: Mild wedge compression deformity of the left side of the L5 vertebral body of indeterminate age. However, this may be old given the more prominent degenerative disc space narrowing and endplate spurring on the left side at the L4-5 and L5-S1 disc spaces. In addition, there is grade 1 anterolisthesis of L5-S1 secondary to facet arthropathy. There is a diffuse disc protrusion at L5-S1 more prominent on the left side extending into the neural foramen. There is spinal canal stenosis at L4-5 and L5-S1. Electronically signed by: Shyla Crockett MD (12/26/2020 5:09 PM) [id number] DICTATED and SIGNED BY: SHYLA CROCKETT MD DATE: 12/26/20 [id number] 0 Course & Med Decision Making: Course & Med Decision Making Pertinent Labs and Imaging studies reviewed. (See chart for details) Patient is a 75-year-old female who was brought here by EMS from prison after she fell out of her bed. Patient did not hit her head, she denies any headache or neck pain. Patient not on blood thinner. Patient did complain of left elbow pain, left hip pain, low back pain. X-ray did not show any acute problem. Patient's [id number] is here to take her back to the prison. Riya Disclaimer: Riya Disclaimer: This electronic medical record was generated, in whole or in part, using a voice recognition dictation system. Departure Departure Impression: Primary Impression: Contusion of left hip Additional Impressions: Left elbow contusion Lower back pain Disposition: 01 HOME / SELF CARE / HOMELESS Condition: STABLE Referrals: MICAH COWAN DO (PCP) Follow up with your doctor as needed Patient Instructions: Back Pain, Adult, Elbow Contusion, Hip Pointer (Iliac Crest Contusion)-[facility] Additional Instructions: Thank you for visiting our Emergency Department. We appreciate you trusting us with your care. If any additional problems come up don't hesitate to return to visit us. Please follow up with your primary care provider so they can plan additional care if needed and know about the problem that you had. If symptoms worsen come back to the Emergency Department. Any concerning symptoms that start such as chest pain, shortness of air, weakness or numbness on one side of the body, running high fevers or any other concerning symptoms return to the ER. POLLO PARRISH DO Dec 26, 2020 16:22
--- NOTE | 2020-12-26 17:11 | RAD ---
CT study of the pelvis without contrast Clinical indications: Fall. Left-sided hip pain and pelvic pain. TECHNIQUE: Noncontrast helical CT scanning of the pelvis was performed. Multiplanar 2-D reconstructio ns were generated. PQRS compliance Statement One or more of the following individualized dose reduction techniques were utilized for this study: 1. Automated exposure control 2. Adjustment of the mA and/or kV according to patient size 3. Use of iterative reconstruction technique FINDINGS: There is grade 1 anterolisthesis of L5-S1 secondary to bilateral facet arthropathy. There i s a mild wedge compression deformity of the left side of L5 vertebral body. This is of indeterminate age. There is more prominent degenerative endplate spurring and disc space narrowing on the left side at L4-5 and L5-S1. No other acute fracture is apparent. The hip joints are symmetric without signifi cant arthritic change. No diastases of the symphysis pubis or either SI joint is seen. No enlarged pe lvic lymphadenopathy is evident. No soft tissue mass is seen. No uterine mass is evident. No dominant ovarian cyst or mass is seen. Sigmoid diverticulosis is seen without diverticulitis. IMPRESSION: Mild wedge compression deformity of the left side of the L5 vertebral body of indetermina te age. However, this may be old given the more prominent degenerative disc space narrowing and endpl ate spurring on the left side at the L4-5 and L5-S1 disc spaces. In addition, there is grade 1 cindy listhesis of L5-S1 secondary to facet arthropathy. There is a diffuse disc protrusion at L5-S1 more p rominent on the left side extending into the neural foramen. There is spinal canal stenosis at L4-5 a nd L5-S1. Electronically signed by: Alan Crockett MD (12/26/2020 5:09 PM) [place] [id number]
[2020-12-26 17:22] VITALS: BP 150/80
== END 2020-12-26 18:04 | disposition home or self-care (01) ==
LOC: ER 15:47
DX: S70.02XA Contusion of left hip, initial encounter (principal); S50.02XA Contusion of left elbow, initial encounter; M54.50 Low back pain, unspecified; G89.29 Other chronic pain; M19.90 Unspecified osteoarthritis, unspecified site; E11.9 Type 2 diabetes mellitus without complications; I10 Essential (primary) hypertension; Z87.820 Personal history of traumatic brain injury; Z88.5 Allergy status to narcotic agent; W06.XXXA Fall from bed, initial encounter; Y93.89 Activity, other specified; Y92.89 Other specified places as the place of occurrence of the external cause; Y99.8 Other external cause status
CPT/HCPCS: 72100; 72192; 73080; 73502; 99284

== ENCOUNTER 2021-01-11 02:29 | Emergency (ER) | payer OTHER ==
[~2021-01-11] VITALS: Ht 167.6 cm; Wt 110.0 kg
--- NOTE | 2021-01-11 02:34 | PHYS DOC ---
Past Medical History Past Medical History: Arthritis, Diabetes-Type II, Hypertension, Other Additional Past Medical Histor: gout, TBI, Arthritis. Past Surgical History: No Surgical History Additional Past Surgical Histo: skull Smoking Status: Never Smoker Alcohol Use: None General Adult EDM: Chief Complaint: ABDOMINAL PAIN HPI: HPI: Patient is a 75 year old female here via EMS from her senior care facility with report of right-sided upper abdominal pain, which began last evening. She reports nausea without vomiting. No reported diarrhea or constipation. She denies fever or chills. She denies chest pain or dyspnea. She denies cough. She has chronic diffuse myalgias and chronic back pain, which are unchanged. I spoke with the nurse caring for her tonight, and he reports that the patient had complained of abdominal pain after having dinner, and she demanded to come to the ER. He reports no history of fever. He reports no history of vomiting. He does report that she frequently complains of diffuse body aches and pain, joint pain, hip pain, back pain. She has a prescription for Ultram, which was somehow not renewed within the last week, so she is out of this. He gave her a dose of Tylenol at the facility, which did not resolve her pain, so she insisted that she be sent to the ER. Review of Systems: Review of Systems: Constitutional: Denies fever or chills. [] HENT: Denies nasal congestion or sore throat. [] Respiratory: Denies cough or shortness of breath. [] Cardiovascular: Denies chest pain or edema. [] GI: Abdominal pain, nausea, no vomiting, no reported bowel habit changes. : Denies urinary symptoms. Musculoskeletal: Chronic and unchanged back pain, myalgias and arthralgias. Integument: Denies rash. [] Neurologic: Denies headache, focal weakness or sensory changes. [] Psychiatric: Chronic anxiety, unchanged reportedly. Heart Score: C/O Chest Pain: No Risk Factors: Risk Factors: DM, Current or recent (<one month) smoker, HTN, HLP, family history of CAD, obesity. Risk Scores: Score 0 - 3: 2.5% MACE over next 6 weeks - Discharge Home Score 4 - 6: 20.3% MACE over next 6 weeks - Admit for Clinical Observation Score 7 - 10: 72.7% MACE over next 6 weeks - Early Invasive Strategies Allergies: Allergies: Allergies Coded Allergies Type Severity Reaction Last Updated Verified codeine Allergy Intermediate 12/26/20 Yes Physical Exam: PE: Constitutional: Well developed, well nourished, no acute distress, non-toxic appearance. She is chronically ill-appearing. HENT: Normocephalic, atraumatic, mucous membranes slightly tacky Eyes: Sclera are clear and anicteric. Neck: Normal range of motion, no tenderness, supple, no stridor. [] Cardiovascular:Heart rate regular rhythm, +2 radial and dorsalis pedis pulses bilaterally. Lungs & Thorax: Bilateral breath sounds clear to auscultation [] Abdomen: Abdomen is obese, soft, nondistended, normal bowel sounds. She has right upper quadrant and right mid abdominal tenderness. Negative Frias's. Mild voluntary guarding. No rebound tenderness. No focal right lower quadrant or left lower quadrant tenderness. No flank or abdominal ecchymoses. Skin: Warm, dry, no erythema, no rash. No jaundice. Back: No tenderness, no CVA tenderness. [] Extremities: No limb deformity. Pelvis is stable. No calf tenderness. Warm and well perfused. Neurologic: Alert, awake, oriented to person and place and situation. She is mildly and pleasantly confused, this is her baseline. 5 out of 5 motor strength all 4 extremities. No facial asymmetry. Sensation is grossly intact. Psychologic: She is anxious and tearful intermittently. She is easily redirected. EKG: EKG: [] Radiology/Procedures: Radiology/Procedures: IMAGING REPORT Signed PATIENT: CARLOZ DODSON ACCOUNT: [id number] : 1945 LOCATION: ER AGE: 75 SEX: F EXAM STATUS: PRE ER ORD. PHYSICIAN: JORGE ERWIN DO REASON: abdominal pain PROCEDURE: CT ABDOMEN PELVIS WO CONTRAST Examination: CT of the abdomen pelvis without contrast HISTORY: History of abdominal pain COMPARISON: None available Technique: Axial CT images of the abdomen pelvis were performed without contrast. Coronal and sagittal reformats are performed Exposure: One or more of the following individualized dose reduction techniques were utilized for this examination: 1. Automated exposure control 2. A djustment of the mA and/or kV according to patient size 3. Use of iterative reconstruction technique FINDINGS: Minimal bibasilar lung atelectasis. No evidence of free air identified in the abdomen. The evaluation of the solid organs is limited due to lack of IV contrast. The evaluation of bowel is limited due to lack of oral contrast. The visualized noncontrasted liver, spleen, grossly appears unremarkable. Fatty density projecting 2.5 cm identified abutting the right anterior gland likely adrenal myelolipoma. Gallbladder is mildly distended. Gallstone identified in the proximal gallbladder. The stomach is mildly distended. The visualized pancreas grossly appears unremarkable. Small bowel is nondilated. Feces and gas noted in the colon. Multiple sigmoid colon diverticulosis. Urinary bladder is mildly distended. No evidence of intrarenal collecting system calculi or hydronephrosis. Moderate degenerative changes lumbar spine. IMPRESSION: 1. Cholelithiasis. 2. Multiple sigmoid colon diverticulosis. Electronically signed by: Armando Alexandre MD (01/11/2021 4:19 AM) [id number] DICTATED and SIGNED BY: ARMANDO ALEXANDRE MD DATE: 01/11/21 [id number] 0 Course & Med Decision Making: Course & Med Decision Making Pertinent Labs and Imaging studies reviewed. (See chart for details) The patient is given IV fluids. She is given IV fentanyl, IV morphine and Zofran. She is given IV Ativan for some agitation. She is now loudly cursing at the staff. She is demanding to be discharged. She has manifested no evidence of acute surgical abdominal findings. No vomiting here. Laboratory exams are unremarkable. She does have cholelithiasis noted on imaging here. No clinical evidence of cholecystitis or pancreatitis. I spoke with the nurse at her care facility, who is comfortable having her return. I did send a prescription for tramadol and Zofran for her to use upon return, though I did recommend that he contact her prescribing physician to discuss this further. I recommend she see outpatient general surgery if symptoms persist. I recommend dietary modification, including bland, low-fat diet. I gave strict return precautions to the patient and the nurse caring for her. Riya Disclaimer: Riya Disclaimer: This electronic medical record was generated, in whole or in part, using a voice recognition dictation system. Departure Departure Impression: Primary Impression: Symptomatic cholelithiasis Disposition: 03 [facility] Condition: STABLE Referrals: MICAH COWAN DO (PCP) Patient Instructions: Cholelithiasis Additional Instructions: Use your pain medicine and nausea medicine as needed. Please discuss your gallstones symptoms further with your primary care physician. You may see a general surgeon, such as Dr. Samson, as an outpatient to discuss possible gallbladder removal, if your symptoms persist or worsen. Return to the ER for more severe pain, uncontrolled vomiting with dehydration, temperature 100.4 or higher, weakness, jaundice or other concerns. Scripts Ondansetron Hcl (ZOFRAN) 4 Mg Tablet 4 MG PO PRN TID PRN for VOMITING, #20 TAB nausea/vomiting Prov: JORGE ERWIN DO 01/11/21 Tramadol Hcl (ULTRAM) 50 Mg Tablet 1 TAB PO PRN Q6HRS PRN for pain MDD 4 Tablet(s), #20 TAB 0 Refills Prov: JORGE ERWIN DO 01/11/21 JORGE ERWIN DO Jan 11, 2021 02:34
[2021-01-11] MEDS ORDERED: ONDANSETRON PF 4 MG/2 ML VIAL. IVP ONE (02:45)
[2021-01-11] MEDS ORDERED: fentaNYL PF VIAL 100 MCG/2 ML VIAL IVP ONE (02:45)
[2021-01-11] MEDS ORDERED: IV NORMAL SALINE 1000ML BAG 1,000 ML IV ONE (02:45)
[2021-01-11 03:00] LABS: BASO # 0.1 x10^3/uL (0.0-0.2); BASO % 1 % (0-3); EOS # 0.2 x10^3/uL (0.0-0.7); EOS % 3 % (0-3); HEMATOCRIT 38.5 % (36.0-47.0); HEMOGLOBIN 12.7 g/dL (12.0-15.5); LYMPH # 1.5 x10^3/uL (1.0-4.8); LYMPH % 20 % (24-48); MEAN CORPUSCULAR HEMOGLOBIN 28 pg (25-35); MEAN CORPUSCULAR HGB CONC 33 g/dL (31-37); MEAN CORPUSCULAR VOLUME 84 fL (79-100); MONO # 0.7 x10^3/uL (0.0-1.1); MONO % 10 % (0-9); NEUT # 5.2 x10^3/uL (1.8-7.7); NEUT % 67 % (31-73); PLATELET COUNT 146 x10^3/uL (140-400); RED BLOOD COUNT 4.57 x10^6/uL (3.50-5.40); RED CELL DISTRIBUTION WIDTH 16.9 % (11.5-14.5); WHITE BLOOD COUNT 7.7 x10^3/uL (4.0-11.0)
[2021-01-11 03:26] LABS: BILIRUBIN,URINE NEGATIVE (NEG); CLARITY,URINE CLEAR; COLOR,URINE YELLOW; NITRITE,URINE NEGATIVE (NEG); PH,URINE 5.5 (<5.0-8.0); PROTEIN,URINE 30 mg/dL (NEG-TRACE); UROBILINOGEN,URINE 0.2 mg/dL (0.2 mg/dL)
[2021-01-11 03:33] LABS: BACTERIA,URINE 0 /HPF (0-FEW); HYALINE CASTS, URINE OCCASIONAL /HPF; RBC,URINE 0 /HPF (0-2)
[2021-01-11 03:33] LABS: CREATININE 1.6 mg/dL (0.6-1.0); GFR 31.5; POTASSIUM 3.9 mmol/L (3.5-5.1)
[2021-01-11 03:39] LABS: ALBUMIN 3.1 g/dL (3.4-5.0); ALBUMIN/GLOBULIN RATIO 0.8 (1.0-1.7); TOTAL BILIRUBIN 0.5 mg/dL (0.2-1.0); TOTAL PROTEIN 6.9 g/dL (6.4-8.2)
[2021-01-11] MEDS ORDERED: MORPHINE SULFATE 4 MG/ML INJ. IVP ONE (04:15)
--- NOTE | 2021-01-11 04:22 | RAD ---
Examination: CT of the abdomen pelvis without contrast HISTORY: History of abdominal pain COMPARISON: None available Technique: Axial CT images of the abdomen pelvis were performed without contrast. Coronal and sagitta l reformats are performed Exposure: One or more of the following individualized dose reduction techniques were utilized for thi s examination: 1. Automated exposure control 2. Adjustment of the mA and/or kV according to patient size 3. Use of iterative reconstruction technique FINDINGS: Minimal bibasilar lung atelectasis. No evidence of free air identified in the abdomen. The evaluation of the solid organs is limited due to lack of IV contrast. The evaluation of bowel is limited due to lack of oral contrast. The visualized noncontrasted liver, spleen, grossly appears unremarkable. Fat ty density projecting 2.5 cm identified abutting the right anterior gland likely adrenal myelolipoma. Gallbladder is mildly distended. Gallstone identified in the proximal gallbladder. The stomach is mi ldly distended. The visualized pancreas grossly appears unremarkable. Small bowel is nondilated. Fece s and gas noted in the colon. Multiple sigmoid colon diverticulosis. Urinary bladder is mildly disten ded. No evidence of intrarenal collecting system calculi or hydronephrosis. Moderate degenerative changes lumbar spine. IMPRESSION: 1. Cholelithiasis. 2. Multiple sigmoid colon diverticulosis. Electronically signed by: Armando Alexandre MD (01/11/2021 4:19 AM) [id number]
[2021-01-11 05:30] VITALS: BP 199/121
[2021-01-11] MEDS ORDERED: traMADol 50 MG TABLET PO ONE (05:45)
[2021-01-11] MEDS ORDERED: ONDA4TAB7 PO (05:50)
[2021-01-11] MEDS ORDERED: TRAM-48 PO (05:50)
== END 2021-01-11 06:30 | disposition home or self-care (01) ==
LOC: ER 02:29
DX: K80.20 Calculus of gallbladder without cholecystitis without obstruction (principal); E11.9 Type 2 diabetes mellitus without complications; I10 Essential (primary) hypertension; Z87.820 Personal history of traumatic brain injury; M10.9 Gout, unspecified; Z88.5 Allergy status to narcotic agent
CPT/HCPCS: 36415; 74176; 80053; 81001; 83605; 83690; 85025; 96361; 96374; 96375; 99285; J2060; J2270; J2405; J3010; J7030